=== PATIENT | male | born 1945 | race Caucasian/White ===

== ENCOUNTER 2024-07-22 17:48 | Emergency (ER) | payer OTHER, MEDICAID ==
[~2024-07-22] VITALS: Ht 182.9 cm; Wt 77.0 kg
[~2024-07-22 17:48] MED LIST: AMLO-905 PO; ASPI-1497 PO; ATOR-2 PO; BISO5TAB13 PO; CLOP-31 PO; DOXY100C5 MT; EMPA25TA PO; ERGO1250; LOSA-412 PO; MECL-299 PO; RISP05 MT; TOPUD PO
[2024-07-22 17:51] VITALS: O2SAT 99
[2024-07-22 19:07] LABS: BASOPHILS % 0.8 % (0.0-2.0); EOSINOPHILS % 3.9 % (0.0-5.0); HEMATOCRIT. 30.3 % (42.0-52.0); HEMOGLOBIN. 9.9 g/dL (14.0-18.0); LYMPHOCYTES % 14.5 % (20.0-50.0); MEAN CORPUSCULAR HEMOGLOBIN 27.8 pg (28.0-32.0); MEAN CORPUSCULAR HGB CONC 32.7 g/dL (31.0-37.0); MEAN CORPUSCULAR VOLUME 85.1 fL (80.0-94.0); MEAN PLATELET VOLUME 7.5 fl (7.4-10.4); MONOCYTES % 9.2 % (2.0-8.0); NEUTROPHILS % 71.6 % (40.0-76.0); PLATELET 245 x1000/uL (130-400); RED BLOOD CELL COUNT 3.57 mill/uL (4.7-6.1); RED CELL DISTRIBUTION WIDTH 15.3 % (11.6-14.6); WHITE BLOOD COUNT 7.5 x1000/uL (4.5-11.0)
[2024-07-22 19:13] LABS: CHLORIDE 108 mEq/L (98-107); POTASSIUM 4.5 mEq/L (3.5-5.1); SODIUM 136 mEq/L (136-145)
[2024-07-22 19:14] LABS: CALCIUM 9.2 mg/dL (8.7-10.4); CARBON DIOXIDE 23 mEq/L (21-32)
[2024-07-22 19:19] LABS: GLUCOSE 267 mg/dL (70-105); UREA NITROGEN BLOOD 44 mg/dL (9-23)
[2024-07-22 19:21] LABS: TROPONIN I HIGH SENSITIVITY 9 ng/L (3.0-53)
[2024-07-22 21:53] LABS: TROPONIN I HIGH SENSITIVITY 8 ng/L (3.0-53)
[2024-07-22 22:02] LABS: CLARITY URINE CLEAR (CLEAR); COLOR URINE YELLOW (YELLOW); GLUCOSE URINE TRACE (NEGATIVE); KETONES URINE NEGATIVE (NEGATIVE); LEUKOCYTE ESTERASE URINE NEGATIVE (NEGATIVE); NITRITE URINE NEGATIVE (NEGATIVE); OCCULT BLOOD URINE NEGATIVE (NEGATIVE); PH URINE 5.5 (4.5-8.0); PROTEIN URINE 1+ (NEGATIVE); SPECIFIC GRAVITY URINE 1.013 (1.005-1.030); UROBILINOGEN URINE 0.2 E.U./dL (0.2-1.0)
[2024-07-22 22:25] LABS: BACTERIA URINE TRACE; RBC URINE NONE SEEN /hpf (0-2); SQUAMOUS EPITHELIAL CELL URINE RARE /lpf (RARE/1+); WBC URINE 0-2 /hpf (0-2)
[2024-07-22 23:26] VITALS: BP 104/70; PULSE 58; RESP 20; TEMP 36.9; O2SAT 100
== END 2024-07-22 23:22 | disposition short-term general hospital (02) ==
LOC: ER 17:48 → EDBEDREQ 18:11 → ER 23:22
DX: M79.605 Pain in left leg (principal); M79.604 Pain in right leg; R53.1 Weakness; R62.7 Adult failure to thrive; E11.9 Type 2 diabetes mellitus without complications; E78.5 Hyperlipidemia, unspecified; F03.90 Unspecified dementia, unspecified severity, without behavioral disturbance, psychotic disturbance, mood disturbance, and anxiety; F20.9 Schizophrenia, unspecified; I10 Essential (primary) hypertension; I67.82 Cerebral ischemia; Z59.00 Homelessness unspecified; Z79.02 Long term (current) use of antithrombotics/antiplatelets; Z79.82 Long term (current) use of aspirin; Z79.84 Long term (current) use of oral hypoglycemic drugs; Z79.899 Other long term (current) drug therapy
CPT/HCPCS: 36415; 71045; 80048; 81003; 83880; 84484; 85025; 93005; 99285

== ENCOUNTER 2024-08-13 18:59 | Emergency (ER) | payer OTHER, MEDICAID ==
[~2024-08-13] VITALS: Ht 177.8 cm; Wt 66.0 kg
[2024-08-13 19:08] VITALS: BP 93/68; PULSE 93; RESP 14; TEMP 36.8; O2SAT 98
[2024-08-13] MEDS: ACETAMINOPHEN 325MG TABLET PO ONE (21:00)
== END 2024-08-13 21:22 | disposition left against medical advice (07) ==
LOC: ER 18:59
DX: M79.671 Pain in right foot (principal); F03.90 Unspecified dementia, unspecified severity, without behavioral disturbance, psychotic disturbance, mood disturbance, and anxiety; F20.9 Schizophrenia, unspecified; E11.9 Type 2 diabetes mellitus without complications; I10 Essential (primary) hypertension; Z79.02 Long term (current) use of antithrombotics/antiplatelets; Z79.82 Long term (current) use of aspirin; Z79.84 Long term (current) use of oral hypoglycemic drugs; Z79.899 Other long term (current) drug therapy
CPT/HCPCS: 99283

== ENCOUNTER 2024-08-18 16:23 | Emergency (ER) | payer OTHER, MEDICAID ==
[~2024-08-18] VITALS: Ht 177.8 cm; Wt 73.5 kg
[2024-08-18 16:29] VITALS: O2SAT 98
[2024-08-18 18:08] LABS: BASOPHILS % 0.7 % (0.0-2.0); EOSINOPHILS % 1.4 % (0.0-5.0); HEMATOCRIT. 29.6 % (42.0-52.0); HEMOGLOBIN. 9.6 g/dL (14.0-18.0); LYMPHOCYTES % 13.2 % (20.0-50.0); MEAN PLATELET VOLUME 7.4 fl (7.4-10.4); MONOCYTES % 7.9 % (2.0-8.0); NEUTROPHILS % 76.8 % (40.0-76.0); PLATELET 297 x1000/uL (130-400); RED BLOOD CELL COUNT 3.53 mill/uL (4.7-6.1); RED CELL DISTRIBUTION WIDTH 15.0 % (11.6-14.6)
[2024-08-18 18:19] LABS: CREATININE 1.9 mg/dL (0.6-1.3)
[2024-08-18 18:20] LABS: UREA NITROGEN BLOOD 45.0 mg/dL (9-23)
[2024-08-18 20:04] VITALS: BP 133/59; PULSE 75; RESP 14; TEMP 37.3; O2SAT 100
[2024-08-18] MEDS ORDERED: ENOXAPARIN 40MG/0.4ML SYR SUBCUT SCH (20:30)
[2024-08-18] MEDS ORDERED: ACETAMINOPHEN 325MG TABLET PO PRN ×2 (20:30)
[2024-08-18] MEDS ORDERED: ONDANSETRON HCL 4MG/2ML INJ IV PRN (20:30)
[2024-08-18] MEDS ORDERED: SODIUM CHLORIDE 0.9% 1,000 ML IV SCH (20:30)
[2024-08-18] MEDS ORDERED: DEXTROSE 50% WATER 50ML SYRINGE IV PRN (20:30)
[2024-08-18] MEDS ORDERED: VANCOMYCIN 1.25GM/250ML IV SCH (20:45)
[2024-08-18 20:52] LABS: CLARITY URINE CLEAR (CLEAR); COLOR URINE YELLOW (YELLOW); GLUCOSE URINE 3+ (NEGATIVE); KETONES URINE NEGATIVE (NEGATIVE); LEUKOCYTE ESTERASE URINE NEGATIVE (NEGATIVE); NITRITE URINE NEGATIVE (NEGATIVE); OCCULT BLOOD URINE NEGATIVE (NEGATIVE); PH URINE 5.0 (4.5-8.0); PROTEIN URINE TRACE (NEGATIVE); SPECIFIC GRAVITY URINE 1.021 (1.005-1.030); UROBILINOGEN URINE 0.2 E.U./dL (0.2-1.0)
[2024-08-18] MEDS ORDERED: BLOOD SUGAR DIAGNOSTIC STRIP TEST SCH (21:00)
[2024-08-18 21:03] LABS: *AMPHETAMINES SCREEN URINE NEGATIVE (NEGATIVE); *BARBITURATES SCREEN URINE NEGATIVE (NEGATIVE); *BENZODIAZEPINES SCREEN URINE NEGATIVE (NEGATIVE); *COCAINE SCREEN URINE NEGATIVE (NEGATIVE); CANNABINOID URINE SCREEN NEGATIVE (NEGATIVE); ECSTASY MDMA SCREEN URINE NEGATIVE (NEGATIVE); METHADONE URINE SCREEN NEGATIVE (NEGATIVE); OPIATES URINE SCREEN NEGATIVE (NEGATIVE); PHENCYCLIDINE URINE SCREEN NEGATIVE (NEGATIVE)
[2024-08-18 21:09] LABS: BACTERIA URINE TRACE; RBC URINE NONE SEEN /hpf (0-2); SQUAMOUS EPITHELIAL CELL URINE RARE /lpf (RARE/1+); WBC URINE NONE SEEN /hpf (0-2)
[2024-08-18] MEDS ORDERED: PIPERACILLIN/TAZO 3.375G/50ML 50 ML IV SCH (22:00)
== END 2024-08-18 22:36 | disposition admitted as inpatient to this hospital (09) ==
LOC: ER 16:23 → EDBEDREQ 18:57 → ER 22:36
DX: T81.89XA Other complications of procedures, not elsewhere classified, initial encounter (principal); E11.40 Type 2 diabetes mellitus with diabetic neuropathy, unspecified; E11.22 Type 2 diabetes mellitus with diabetic chronic kidney disease; I12.9 Hypertensive chronic kidney disease with stage 1 through stage 4 chronic kidney disease, or unspecified chronic kidney disease; I95.9 Hypotension, unspecified; D64.9 Anemia, unspecified; N18.9 Chronic kidney disease, unspecified; Z79.899 Other long term (current) drug therapy; Z79.82 Long term (current) use of aspirin; Z86.59 Personal history of other mental and behavioral disorders; Y92.89 Other specified places as the place of occurrence of the external cause
CPT/HCPCS: 99284; 80305; 80048; 81003; 83036; 87106; 85025; 87040; 87070; 87205; 36415; 93005; J3370